=== PATIENT | female | born 1945 | race Caucasian/White ===

== ENCOUNTER → 2018-02-10 | Outpatient (CLI) | payer MEDICARE ==
[2018-02-10] VITALS (22 sets, daily range): BP systolic 93–200; BP diastolic 58–95
== END | disposition home or self-care (01) ==
LOC: CARD DIAG 11:43
PROVIDERS: ATTEND Internal Medicine Cardiovascular Disease
DX: R42 Dizziness and giddiness (principal); Z87.891 Personal history of nicotine dependence
CPT/HCPCS: 93660